=== PATIENT | male | born 1965 | race Caucasian/White ===

== ENCOUNTER 2016-03-20 11:11 | Emergency (ER) | payer MEDICAID ==
[~2016-03-20] VITALS: Wt 105.5 kg
[2016-03-20] MEDS ORDERED: SILVER SULFADIAZINE 1% 25 GM CR TOP ONE (12:30)
[2016-03-20] MEDS ORDERED: MUPI15CR9 TOP (13:02)
[2016-03-20] MEDS ORDERED: CEPH-443 PO (13:02)
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
== END 2016-03-20 13:17 | disposition home or self-care (01) ==
LOC: FTE 11:11
DX: T25.222A Burn of second degree of left foot, initial encounter (principal); X19.XXXA Contact with other heat and hot substances, initial encounter; Y92.9 Unspecified place or not applicable
CPT/HCPCS: 16020; Z7502; Z7610

== ENCOUNTER → 2017-03-14 | Emergency (ER) | END | disposition home or self-care (01) ==

== ENCOUNTER 2018-08-25 06:07 | Emergency (ER) | payer MEDICAID ==
[~2018-08-25] VITALS: Ht 172.7 cm; Wt 90.6 kg
[~2018-08-25 06:07] MED LIST: BENZ-6 PO; CEPH-443 PO; MUPI15CR9 TOP
[2018-08-25 06:11] VITALS: BP 167/107; PULSE 78; RESP 16; Ht 172.7 cm; Wt 90.6 kg
[2018-08-25] MEDS ORDERED: GUAI-637 PO (07:31)
[2018-08-25] MEDS ORDERED: IBUP-1561 PO (07:32)
--- NOTE | 2018-08-25 07:39 | ERD ---
ER Documentation Chief Complaint Chief Complaint Pt reports st x 1 week HPI 53-year-old male patient with complaint of sore throat for the past week. In addition, he states that his throat is been hoarse. Denies fevers, drooling, trismus, difficulty swallowing, muffled voice, difficulty breathing, rash, or neck stiffness. ROS All systems reviewed and are negative except as per history of present illness. Medications Home Meds Active Scripts Ibuprofen* (Motrin*) 400 Mg Tab, 400 MG PO Q6H PRN for PAIN AND OR ELEVATED TEMP, #30 TAB Prov:DELIA STARK 08/25/18 Guaifenesin* (Robitussin*) 100 Mg/5 Ml Syrup, 200 MG PO Q4H PRN for COUGH, #4 OZ Prov:DELIA STARK 08/25/18 Benzonatate* (Tessalon Perle*) 100 Mg Capsule, 100 MG PO Q8H PRN for COUGH, #20 CAP Prov:ELVIRA MEYERS MD 03/14/17 Mupirocin Calcium* (Mupirocin*) 2% - 15 Gram Cream..g., 1 APPLIC TOP BID, #1 TUB Prov:ASTRID,CHIP C 03/20/16 Cephalexin* (Keflex*) 500 Mg Capsule, 500 MG PO BID for 7 Days, CAP Prov:ASTRID,CHIP C 03/20/16 Allergies Allergies: Coded Allergies: No Known Allergy (Unverified , 03/20/16) PMhx/Soc Medical and Surgical Hx: pt denies Surgical Hx Hx Cardiac Disorders: Yes (HTN) Hx Alcohol Use: No Hx Substance Use: No Hx Tobacco Use: No Smoking Status: Never smoker FmHx Family History: No diabetes, No coronary disease, No other Physical Exam Vitals Vital Signs Date Temp Pulse Resp B/P (MAP) Pulse Ox O2 O2 Flow FiO2 Time Delivery Rate 08/25/18 97.2 78 16 167/107 95 06:11 (127) Physical Exam Const: No acute distress Head: Atraumatic Eyes: Normal Conjunctiva ENT: Normal External Ears, Nose and Mouth. Tonsils nonedematous erythematous bilaterally with no exudate. Uvula midline. There are no peritonsillar masses noted. Neck: Full range of motion. No meningismus. No lymphadenopathy. Resp: Clear to auscultation bilaterally Cardio: Regular rate and rhythm, no murmurs Abd: Soft, non tender, non distended. Normal bowel sounds Skin: No petechiae or rashes Back: No midline or flank tenderness Ext: No cyanosis, or edema Neur: Awake and alert Psych: Normal Mood and Affect Procedures/MDM MDM: Patient's presentation is consistent laryngitis. Patient given a mucolytic as well as ibuprofen for discomfort. I have low suspicion for epiglottitis, peritonsilar abscess, ludwigs angina, retropharyngeal abscess, or other emergent etiologies based on patients exam and history. Patient does not meet center criteria for rapid strep testing. At this time, patient is stable for discharge and outpatient management. I have instructed the patient to follow-up with his/her primary care physician in 1-2 days. I have discussed with the patient the possibility of needing to see a specialist for further workup and imaging studies if symptoms persist. I have instructed the patient to promptly return to the ER for any new or worsening symptoms including but not limited to increased pain, fever, nausea, vomiting, weakness or LOC. The patient and/or family expressed understanding of and agreement with this plan. All questions were answered. Home care instructions were provided. [Communication with patient both during the exam and instructions for discharge were performed with using a rectifying attendant . Patient gave verbal confirmation to the practitioner, through the rectifying attendant, that they understood everythign that was being said to them.] DISCLAIMER: Inadvertent spelling and grammatical errors are likely due to EHR/dictation software use and do not reflect on the overall quality of patient care. Also, please note that the electronic time recorded on this note does not necessarily reflect the actual time of the patient encounter. Departure Diagnosis: Primary Impression: Laryngitis Condition: Stable Patient Instructions: Self-Care for Sore Throats, Laryngitis Additional Instructions: FOLLOW UP WITH YOUR PRIMARY CARE PHYSICIAN TOMORROW.Return to this facility if you are not improving as expected. DELIA STARK Aug 25, 2018 07:39
== END 2018-08-25 07:42 | disposition home or self-care (01) ==
LOC: FTE 06:07
DX: J04.0 Acute laryngitis (principal); I10 Essential (primary) hypertension
CPT/HCPCS: 99282